=== PATIENT | male | born 1955 | race Caucasian/White ===

== ENCOUNTER 2021-05-10 12:36 | Outpatient (CLI) | payer OTHER, MEDICAID, SELFPAY ==
[~2021-05-10] VITALS: Ht 165.1 cm; Wt 80.7 kg
== END 2021-05-10 15:00 | disposition home or self-care (01) ==
LOC: SLB 12:36 → EDSTATUS 05-11 09:15
PROVIDERS: ATTEND Internal Medicine Gastroenterology
DX: Z01.812 Encounter for preprocedural laboratory examination (principal); Z20.822 Contact with and (suspected) exposure to COVID-19; Z53.8 Procedure and treatment not carried out for other reasons
CPT/HCPCS: 36415

== ENCOUNTER 2021-07-04 07:03 | Day surgery (SDC) | payer OTHER, MEDICAID, SELFPAY ==
[~2021-07-04] VITALS: Ht 170.2 cm; Wt 80.3 kg
[2021-07-04] MEDS ORDERED: MEPERIDINE 100 MG INJ. 100 MG/ML VIAL ONE (07:36)
[2021-07-04] MEDS ORDERED: MIDAZOLAM HCL 5 MG/5 ML VIAL ONE (07:36)
[2021-07-04] MEDS ORDERED: SIMETHICONE 40 MG/0.6 ML ML ONE (07:36)
[2021-07-04 11:25] VITALS: BP_SYST 138
== END 2021-07-04 11:10 | disposition home or self-care (01) ==
LOC: SDS 07:03 → SMU 07:03 → SDS 11:10
PROVIDERS: ATTEND Internal Medicine Gastroenterology
DX: K92.1 Melena (principal); D64.9 Anemia, unspecified; K21.00 Gastro-esophageal reflux disease with esophagitis, without bleeding; K44.9 Diaphragmatic hernia without obstruction or gangrene; K29.50 Unspecified chronic gastritis without bleeding; E11.9 Type 2 diabetes mellitus without complications; Z79.899 Other long term (current) drug therapy; Z20.822 Contact with and (suspected) exposure to COVID-19
CPT/HCPCS: 36415; 43239; 87081; 87426; 88305; 88312; 88313; G0378; J2175; J2250; U0003